=== PATIENT | female | born 1940 | race Caucasian/White ===

== ENCOUNTER 2018-01-05 23:51 | Emergency (ER) | payer MEDICARE ==
[~2018-01-05] VITALS: Ht 165.1 cm; Wt 79.0 kg
[~2018-01-05 23:51] MED LIST: ASPIRIN EC81 MG PO; CALCIUM600 M3 PO; CARVEDILOL6.25 MG PO; FLEXERIL PO; LIPITOR40 M1 PO; LISINOPRIL20 MG PO; NAPROSYN500 MG PO; PRILOSEC40 MG PO; ZYRTEC10 MG PO
[2018-01-06] MEDS ORDERED: CITRACAL +3 PO (00:18)
[2018-01-06] MEDS ORDERED: FIBERCON625 MG PO (00:19)
[2018-01-06] MEDS ORDERED: FLONASE AL50 MCG/ACT (00:20)
[2018-01-06] MEDS ORDERED: LOSARTAN POTASS50 MG PO (00:20)
[2018-01-06] MEDS ORDERED: FLORASTOR250 M1 PO (00:21)
[2018-01-06] MEDS ORDERED: VITAMIN B CO PO (00:22)
[2018-01-06 01:21] LABS: URINE BILIRUBIN - DIPSTICK NEGATIVE (NEGATIVE); URINE BLOOD DIPSTICK TRACE-INTACT (NEGATIVE); URINE COLOR YELLOW; URINE GLUCOSE - DIPSTICK NEGATIVE (NEGATIVE); URINE KETONE NEGATIVE (NEGATIVE); URINE NITRITE - DIPSTICK NEGATIVE (Negative); URINE PROTEIN - DIPSTICK NEGATIVE (NEG-TRACE); URINE UROBILINOGEN - DIPSTICK 0.2 E.U./dL (0.2)
[2018-01-06 01:23] LABS: URINE CLARITY CLOUDY; URINE LEUK ESTERASE MODERATE (NEGATIVE)
[2018-01-06 01:26] LABS: URINE RBC 0-2 RBC/hpf (0-5); URINE WBC 20-50 WBC/hpf (0-5)
[2018-01-06 01:27] LABS: URINE BACTERIA MODERATE hpf; URINE MUCUS FEW hpf (NONE-FEW); URINE SQUAMOUS EPITHELIAL CELL FEW EPI/hpf (0-FEW)
[2018-01-06] MEDS ORDERED: MEDDOSEPAK PO (01:32)
[2018-01-06] MEDS ORDERED: ULTRAM50 M1 PO (01:32)
[2018-01-06] MEDS ORDERED: FLEXERIL PO (01:32)
[2018-01-06 01:50] VITALS: BP 164/70
== END 2018-01-06 01:48 | disposition home or self-care (01) ==
LOC: ED 23:51
PROVIDERS: Emergency Medicine
DX: M47.816 Spondylosis without myelopathy or radiculopathy, lumbar region (principal); M54.30 Sciatica, unspecified side; B96.20 Unspecified Escherichia coli [E. coli] as the cause of diseases classified elsewhere

== ENCOUNTER 2018-04-26 10:53 | Inpatient (IN) | payer MEDICARE ==
[2018-04-26] VITALS (7 sets, daily range): BP systolic 120–185; BP diastolic 45–71
[~2018-04-26] VITALS: Ht 165.1 cm; Wt 81.0 kg
[~2018-04-26 10:53] MED LIST changes: +ADULT ASPIRIN E81 MG PO; -ASPIRIN EC81 MG PO; +CITRACAL +3 PO; +FIBERCON625 MG PO; +FLONASE AL50 MCG/ACT; +FLORASTOR250 M1 PO; +LOSARTAN POTASS50 MG PO; +MEDDOSEPAK PO; +ULTRAM50 M1 PO; +VITAMIN B CO PO
[2018-04-26 11:26] LABS: HEMATOCRIT 40.2 % (37.0-47.0); HEMOGLOBIN 13.5 g/dl (12.0-16.0); IMMATURE GRANULOCYTES 0.4 % (0.0-5.0); MEAN CELL VOLUME 80.1 fL CALC (80.0-100.0); MEAN CORPUSCULAR HGB 26.9 pG CALC (26.0-32.0); MEAN CORPUSCULAR HGB CONC 33.6 g/L CALC (32.0-36.0); NEUT# 4.3 thou/uL (2.00-7.15); RED BLOOD COUNT 5.02 mill/uL (4.20-5.60); RED CELL DISTRI WIDTH 14.1 % (11.5-15.5)
[2018-04-26 11:42] LABS: BUN 19 mg/dL (8-23); BUN/CREATININE RATIO 16 (12-20 (CALC)); CARBON DIOXIDE 31 mmol/l (22-30); CHLORIDE 88 mmol/l (95-108); CREATININE 1.2 mg/dL (0.5-1.0); GFR 43 ML/MIN (>=60 (CALC)); GFR FOR AFR.AMER. 52 ML/MIN (>=60 (CALC)); SODIUM 128 mmol/l (137-146)
[2018-04-26 11:44] LABS: ANION GAP 12 (6-22 (CALC)); POTASSIUM 3.1 mmol/l (3.5-5.1)
[2018-04-26] MEDS ORDERED: CHLORTHALID25 MG PO (11:50)
[2018-04-26 17:28] LABS: POTASSIUM 3.4 mmol/l (3.5-5.1)
[2018-04-27] VITALS (9 sets, daily range): BP systolic 120–171; BP diastolic 56–79
[2018-04-27 05:16] LABS: IMMATURE GRANULOCYTES 0.2 % (0.0-5.0); MEAN CELL VOLUME 80.1 fL CALC (80.0-100.0); MEAN CORPUSCULAR HGB 26.7 pG CALC (26.0-32.0); MEAN CORPUSCULAR HGB CONC 33.3 g/L CALC (32.0-36.0); NEUT# 3.1 thou/uL (2.00-7.15); RED BLOOD COUNT 4.87 mill/uL (4.20-5.60); RED CELL DISTRI WIDTH 14.3 % (11.5-15.5)
[2018-04-27 05:21] LABS: BILIRUBIN, TOTAL 0.8 mg/dL (0.0-1.4); CREATININE 1.4 mg/dL (0.5-1.0); MAGNESIUM 2.2 mg/dL (1.6-2.3); POTASSIUM 3.4 mmol/l (3.5-5.1); TOTAL PROTEIN 5.4 g/dL (6.3-8.2)
[2018-04-28 00:50] VITALS: BP 165/70
[2018-04-28 03:00] VITALS: BP 150/72
[2018-04-28 05:00] VITALS: BP 169/63
[2018-04-28 05:31] LABS: HEMATOCRIT 39.7 % (37.0-47.0); HEMOGLOBIN 13.2 g/dl (12.0-16.0); IMMATURE GRANULOCYTES 0.3 % (0.0-5.0); MEAN CORPUSCULAR HGB 26.9 pG CALC (26.0-32.0); MEAN CORPUSCULAR HGB CONC 33.2 g/L CALC (32.0-36.0); NEUT# 3.33 thou/uL (2.00-7.15); RED BLOOD COUNT 4.9 mill/uL (4.20-5.60); RED CELL DISTRI WIDTH 14.6 % (11.5-15.5)
[2018-04-28 05:52] LABS: ALBUMIN 3.2 g/dL (3.2-5.0); BILIRUBIN, TOTAL 0.6 mg/dL (0.0-1.4); CREATININE 1.2 mg/dL (0.5-1.0); MAGNESIUM 1.9 mg/dL (1.6-2.3); POTASSIUM 3.6 mmol/l (3.5-5.1); TOTAL PROTEIN 5.4 g/dL (6.3-8.2)
[2018-04-28 05:53] LABS: CHOLESTEROL HDL RATIO 2.3 (<4.4 (CALC))
[2018-04-28 10:17] VITALS: BP 144/57
[2018-04-28] MEDS ORDERED: COZAAR25 MG PO (11:11)
[2018-04-28] MEDS ORDERED: AMLODIPINE BESYL5 MG PO (11:12)
[2018-04-28] MEDS ORDERED: VITAMIN D2000 UNI2 PO (11:20)
[2018-04-28 11:25] LABS: URINE BILIRUBIN - DIPSTICK NEGATIVE (NEGATIVE); URINE BLOOD DIPSTICK NEGATIVE (NEGATIVE); URINE CLARITY CLEAR; URINE COLOR YELLOW; URINE GLUCOSE - DIPSTICK NEGATIVE (NEGATIVE); URINE KETONE NEGATIVE (NEGATIVE); URINE LEUK ESTERASE NEGATIVE (Negative); URINE NITRITE - DIPSTICK NEGATIVE (Negative); URINE PROTEIN - DIPSTICK NEGATIVE (NEG-TRACE); URINE UROBILINOGEN - DIPSTICK 0.2 E.U./dL (0.2)
== END 2018-04-28 12:38 | disposition home or self-care (01) | DRG 641 ==
LOC: ED 10:53 → ED-I 12:00 → ED 12:32 → ICU 12:33
PROVIDERS: Family Medicine; ADMIT Internal Medicine Nephrology; ATTEND Internal Medicine Nephrology
DX: E87.1 Hypo-osmolality and hyponatremia (principal); N17.9 Acute kidney failure, unspecified; N39.0 Urinary tract infection, site not specified; E87.6 Hypokalemia; T50.2X5A Adverse effect of carbonic-anhydrase inhibitors, benzothiadiazides and other diuretics, initial encounter; I12.9 Hypertensive chronic kidney disease with stage 1 through stage 4 chronic kidney disease, or unspecified chronic kidney disease; N18.3 Chronic kidney disease, stage 3 (moderate); J44.9 Chronic obstructive pulmonary disease, unspecified; E78.5 Hyperlipidemia, unspecified; I25.10 Atherosclerotic heart disease of native coronary artery without angina pectoris; K21.9 Gastro-esophageal reflux disease without esophagitis; G89.29 Other chronic pain; M54.9 Dorsalgia, unspecified; R00.1 Bradycardia, unspecified; E55.9 Vitamin D deficiency, unspecified; B96.20 Unspecified Escherichia coli [E. coli] as the cause of diseases classified elsewhere; Z87.891 Personal history of nicotine dependence; Z95.828 Presence of other vascular implants and grafts
CPT/HCPCS: J1650; J3475

== ENCOUNTER → 2018-08-10 | Outpatient (REF) | payer MEDICARE ==
[~2018-08-10] MED LIST changes: +AMLODIPINE BESYL5 MG PO; +CHLORTHALID25 MG PO; +COZAAR25 MG PO; +VITAMIN D2000 UNI2 PO
[2018-08-10 12:28] LABS: HEMATOCRIT 39.4 % (37.0-47.0); IMMATURE GRANULOCYTES 0.1 % (0.0-5.0); MEAN CELL VOLUME 85.3 fL CALC (80.0-100.0); MEAN CORPUSCULAR HGB 28.1 pG CALC (26.0-32.0); RED BLOOD COUNT 4.62 mill/uL (4.20-5.60); RED CELL DISTRI WIDTH 15.5 % (11.5-15.5); URINE BILIRUBIN - DIPSTICK NEGATIVE (NEGATIVE); URINE BLOOD DIPSTICK NEGATIVE (NEGATIVE); URINE CLARITY CLEAR; URINE COLOR YELLOW; URINE GLUCOSE - DIPSTICK NEGATIVE (NEGATIVE); URINE KETONE NEGATIVE (NEGATIVE); URINE LEUK ESTERASE NEGATIVE (Negative); URINE NITRITE - DIPSTICK NEGATIVE (Negative); URINE PH 5.5 (4.5-8.0); URINE PROTEIN - DIPSTICK NEGATIVE (NEG-TRACE); URINE SPECIFIC GRAVITY <=1.005; URINE UROBILINOGEN - DIPSTICK 0.2 E.U./dL (0.2)
[2018-08-10 12:44] LABS: ALBUMIN 3.8 g/dL (3.2-5.0); CREATININE 1.2 mg/dL (0.5-1.0); POTASSIUM 3.7 mmol/l (3.5-5.1)
== END | disposition home or self-care (01) ==
LOC: LAB 11:55
PROVIDERS: ATTEND Internal Medicine Nephrology
DX: N18.3 Chronic kidney disease, stage 3 (moderate) (principal)

== ENCOUNTER 2022-06-17 22:01 | Emergency (ER) | payer MEDICARE ==
[~2022-06-17] VITALS: Ht 165.1 cm; Wt 81.0 kg
[2022-06-17 22:14] VITALS: BP 135/58
[2022-06-17 22:56] LABS: BASO% 0.3 % (0-3); EOS% 1.4 % (0-8); HEMATOCRIT 38.7 % (37.0-47.0); HEMOGLOBIN 13.3 g/dl (12.0-16.0); IMMATURE GRANULOCYTES 0.1 % (0.0-5.0); LYMPH% 16.3 % (15-41); MEAN CORPUSCULAR HGB 30.9 pG CALC (26.0-32.0); MEAN CORPUSCULAR HGB CONC 34.4 g/dL CAL (32.0-36.0); MONO% 9.7 % (2-13); NEUT# 6.63 thou/uL (2.00-7.15); NEUT% 72.2 % (42-76); RED BLOOD COUNT 4.3 mill/uL (4.20-5.60); RED CELL DISTRI WIDTH 13.7 % (11.5-15.5); URINE BILIRUBIN - DIPSTICK NEGATIVE (NEGATIVE); URINE BLOOD DIPSTICK NEGATIVE (NEGATIVE); URINE COLOR YELLOW; URINE GLUCOSE - DIPSTICK NEGATIVE (NEGATIVE); URINE KETONE NEGATIVE (NEGATIVE); URINE LEUK ESTERASE NEGATIVE (NEGATIVE); URINE NITRITE - DIPSTICK NEGATIVE (Negative); URINE PROTEIN - DIPSTICK NEGATIVE (NEG-TRACE); URINE SPECIFIC GRAVITY 1.025
[2022-06-17 23:08] LABS: ALBUMIN 3.7 g/dL (3.2-5.0); BILIRUBIN, TOTAL 0.8 mg/dL (0.0-1.4); CREATININE 1.1 mg/dL (0.5-1.0); POTASSIUM 4.1 mmol/l (3.5-5.1)
[2022-06-18] MEDS ORDERED: CITRATE OF MEGNESIA PO (00:26)
[2022-06-18] MEDS ORDERED: MIRALAX17 GM PO (00:26)
[2022-06-18 00:41] VITALS: BP 135/58
== END 2022-06-18 01:05 | disposition home or self-care (01) ==
LOC: ED 22:01
PROVIDERS: Family Medicine
DX: K59.00 Constipation, unspecified (principal); I10 Essential (primary) hypertension; F17.200 Nicotine dependence, unspecified, uncomplicated; Z95.820 Peripheral vascular angioplasty status with implants and grafts

== ENCOUNTER 2022-07-15 23:33 | Emergency (ER) | payer MEDICARE ==
[~2022-07-15] VITALS: Ht 165.1 cm; Wt 84.1 kg
[~2022-07-15 23:33] MED LIST changes: +CITRATE OF MEGNESIA PO; +MIRALAX17 GM PO
[2022-07-16] MEDS ORDERED: NORVASC2.5 M1 PO (00:06)
[2022-07-16] MEDS ORDERED: ATORVASTATIN CA40 MG PO (00:07)
[2022-07-16] MEDS ORDERED: CARVEDILOL25 MG PO (00:07)
[2022-07-16] MEDS ORDERED: D31000 UNIT PO (00:09)
[2022-07-16] MEDS ORDERED: MONTELUKAST SOD10 MG PO (00:11)
[2022-07-16] MEDS ORDERED: PROTONIX20 M1 PO (00:13)
[2022-07-16] MEDS ORDERED: MICARDIS80 MG PO (00:14)
[2022-07-16] MEDS ORDERED: ELIQUIS5 MG PO (00:16)
[2022-07-16 00:33] LABS: BASO% 0.5 % (0-3); EOS% 3.6 % (0-8); HEMATOCRIT 39.6 % (37.0-47.0); HEMOGLOBIN 13.3 g/dl (12.0-16.0); IMMATURE GRANULOCYTES 0.2 % (0.0-5.0); LYMPH% 35.5 % (15-41); MEAN CELL VOLUME 89.4 fL CALC (80.0-100.0); MEAN CORPUSCULAR HGB CONC 33.6 g/dL CAL (32.0-36.0); MONO% 8.6 % (2-13); NEUT# 2.86 thou/uL (2.00-7.15); NEUT% 51.6 % (42-76); RED BLOOD COUNT 4.43 mill/uL (4.20-5.60); RED CELL DISTRI WIDTH 13.4 % (11.5-15.5)
[2022-07-16 00:45] LABS: ALBUMIN 3.8 g/dL (3.2-5.0); BILIRUBIN, TOTAL 0.7 mg/dL (0.02-1.3); CREATININE 1.1 mg/dL (0.5-1.0); POTASSIUM 4.1 mmol/l (3.5-5.1); TOTAL PROTEIN 6.2 g/dL (6.3-8.2)
[2022-07-16 04:28] VITALS: BP 131/62
== END 2022-07-16 04:29 | disposition home or self-care (01) ==
LOC: ED 23:33
PROVIDERS: Emergency Medicine
DX: K59.00 Constipation, unspecified (principal); I10 Essential (primary) hypertension; F17.200 Nicotine dependence, unspecified, uncomplicated; Z95.820 Peripheral vascular angioplasty status with implants and grafts

== ENCOUNTER 2022-09-01 17:40 | Emergency (ER) | payer MEDICARE ==
[~2022-09-01] VITALS: Ht 165.1 cm; Wt 83.9 kg
[~2022-09-01 17:40] MED LIST changes: +ATORVASTATIN CA40 MG PO; +CARVEDILOL25 MG PO; +D31000 UNIT PO; +ELIQUIS5 MG PO; +MICARDIS80 MG PO; +MONTELUKAST SOD10 MG PO; +NORVASC2.5 M1 PO; +PROTONIX20 M1 PO
[2022-09-01 17:48] VITALS: BP 169/66
[2022-09-01 18:13] LABS: BASO% 0.6 % (0-3); EOS% 3.9 % (0-8); HEMATOCRIT 40.9 % (37.0-47.0); HEMOGLOBIN 13.3 g/dl (12.0-16.0); IMMATURE GRANULOCYTES 0.1 % (0.0-5.0); LYMPH% 32.5 % (15-41); MEAN CELL VOLUME 89.9 fL CALC (80.0-100.0); MEAN CORPUSCULAR HGB 29.2 pG CALC (26.0-32.0); MEAN CORPUSCULAR HGB CONC 32.5 g/dL CAL (32.0-36.0); MONO% 9.6 % (2-13); NEUT# 3.73 thou/uL (2.00-7.15); NEUT% 53.3 % (42-76); RED BLOOD COUNT 4.55 mill/uL (4.20-5.60); RED CELL DISTRI WIDTH 13.7 % (11.5-15.5)
[2022-09-01 18:31] LABS: ALBUMIN 3.9 g/dL (3.2-5.0); BILIRUBIN, TOTAL 0.8 mg/dL (0.02-1.3); CREATININE 1.2 mg/dL (0.5-1.0); POTASSIUM 4.4 mmol/l (3.5-5.1); TOTAL PROTEIN 6.2 g/dL (6.3-8.2)
[2022-09-01 18:35] VITALS: BP 151/57
[2022-09-01 18:45] VITALS: BP 157/74
[2022-09-01 19:49] LABS: URINE BILIRUBIN - DIPSTICK NEGATIVE (NEGATIVE); URINE BLOOD DIPSTICK NEGATIVE (NEGATIVE); URINE COLOR YELLOW; URINE GLUCOSE - DIPSTICK NEGATIVE (NEGATIVE); URINE KETONE NEGATIVE (NEGATIVE); URINE LEUK ESTERASE TRACE (NEGATIVE); URINE PROTEIN - DIPSTICK NEGATIVE (NEG-TRACE); URINE SPECIFIC GRAVITY 1.025
[2022-09-01 19:53] LABS: URINE NITRITE - DIPSTICK NEGATIVE (Negative)
[2022-09-01] MEDS ORDERED: ZOFRAN4 MG/TAB PO ×2 (20:18→20:39)
[2022-09-01] MEDS ORDERED: MIRALAX17 GM PO ×2 (20:18→20:39)
[2022-09-01] MEDS ORDERED: DICYCLOMINE10 MG PO ×2 (20:18→20:39)
[2022-09-01 20:40] VITALS: BP 157/74
== END 2022-09-01 21:23 | disposition home or self-care (01) ==
LOC: ED 17:40
PROVIDERS: Family Medicine
DX: K59.00 Constipation, unspecified (principal); I10 Essential (primary) hypertension; Z95.820 Peripheral vascular angioplasty status with implants and grafts; Z79.01 Long term (current) use of anticoagulants

== ENCOUNTER 2024-06-20 13:13 | Inpatient (IN) | payer MEDICARE ==
[2024-06-20] VITALS (36 sets, daily range): BP systolic 107–140; BP diastolic 42–65
[~2024-06-20] VITALS: Ht 165.1 cm; Wt 79.1 kg
[~2024-06-20 13:13] MED LIST changes: +ALLERGY RE50 MCG/ACT; +AMLODIPINE BES2.5 MG PO; +B COMPLEX FORMU1 TAB PO; +BACTRIM DS1 TAB PO; +DICYCLOMINE10 MG PO; +PROTONIX40 M2 PO; +ZOFRAN4 MG/TAB PO
[2024-06-20] MEDS ORDERED: Meropenem 1 GM in SODIUM CHLORIDE 0.9% 100 ML IV ONE (14:20)
--- NOTE | 2024-06-20 14:27 | NUR ---
Unable to start IV due to patient being a difficult stick.
[2024-06-20 14:59] LABS: BASO% 0.4 % (0-3); EOS% 3.4 % (0-8); HEMATOCRIT 35.5 % (37.0-47.0); HEMOGLOBIN 11.4 g/dl (12.0-16.0); IMMATURE GRANULOCYTES 0.4 % (0.0-5.0); LYMPH% 29.8 % (15-41); MEAN CELL VOLUME 87.7 fL CALC (80.0-100.0); MEAN CORPUSCULAR HGB 28.1 pG CALC (26.0-32.0); MEAN CORPUSCULAR HGB CONC 32.1 g/dL CAL (32.0-36.0); MONO% 11.2 % (2-13); NEUT# 4.02 thou/uL (2.00-7.15); NEUT% 54.8 % (42-76); RED BLOOD COUNT 4.05 mill/uL (4.20-5.60); RED CELL DISTRI WIDTH 20.5 % (11.5-15.5)
[2024-06-20 15:11] LABS: ALBUMIN 3.5 g/dL (3.2-5.0); CREATININE 1.4 mg/dL (0.5-1.0); POTASSIUM 4.4 mmol/l (3.5-5.1); TOTAL PROTEIN 5.8 g/dL (6.3-8.2)
[2024-06-20 15:16] LABS: BILIRUBIN, TOTAL 0.9 mg/dL (0.02-1.3)
[2024-06-20] MEDS ORDERED: MAGNESIUM HYDROXIDE 30 ML UDC PO PRN (16:10)
[2024-06-20] MEDS ORDERED: ACETAMINOPHEN 325 MG/TAB PO PRN (16:10)
[2024-06-20] MEDS ORDERED: cefTRIAXone SODIUM 2 GM in SODIUM CHLORIDE 0.9% 100 ML IV SCH (16:10)
[2024-06-20] MEDS ORDERED: SODIUM CHLORIDE 0.9% 1,000 ML IV PRN (16:10)
[2024-06-20] MEDS ORDERED: HYDROcodone 5 MG/Acetaminophen 325 MG/COMBO PO ONE (17:05)
--- NOTE | 2024-06-20 18:00 | NUR ---
Report called to [facility], ICU.
--- NOTE | 2024-06-20 19:00 | NUR ---
PT ARRIVED TO ICU BED 7 VIA W/C @ APPROX 1843. PT AMBULATED TO BED. PT IS A + O x4, NO COMPLAINTS AT THIS TIME. ASSESSMENT COMPLETED. EDUCTAED PT ON POC, DAUGHTER @ BEDSIDE. V/S STABLE, CALL LIGHT IN REACH
[2024-06-20] MEDS ORDERED: ATORVASTATIN CALCIUM 40 MG/TAB PO SCH (21:00)
[2024-06-20] MEDS ORDERED: CARVEDILOL 25 MG/TAB PO SCH (21:00)
[2024-06-20] MEDS ORDERED: APIXABAN BASE 5 MG TAB PO SCH (21:00)
[2024-06-20] MEDS ORDERED: Meropenem 1 GM in SODIUM CHLORIDE 0.9% 100 ML IV SCH (22:00)
[2024-06-21] VITALS (80 sets, daily range): BP systolic 66–165; BP diastolic 29–116
--- NOTE | 2024-06-21 | NUR ---
PT RESTING COMFORTABLY, NO CHNAGES NOTED. V/S STABLE. CALL LIGHT IN REACH
--- NOTE | 2024-06-21 04:00 | NUR ---
PT ENCOURAGED TO INTAKE WATER, EDUCATED ON NEED. PT WAS ASSISTED TO BSC BY THEATER TEACHER, VOID ONLY. PT BACK IN BED, V/S STABLE, CALL LIGHT IN REACH
[2024-06-21 06:02] LABS: BASO% 0.4 % (0-3); EOS% 4.7 % (0-8); HEMATOCRIT 35.5 % (37.0-47.0); HEMOGLOBIN 11.6 g/dl (12.0-16.0); IMMATURE GRANULOCYTES 0.2 % (0.0-5.0); LYMPH% 29.8 % (15-41); MEAN CELL VOLUME 89.4 fL CALC (80.0-100.0); MEAN CORPUSCULAR HGB 29.2 pG CALC (26.0-32.0); MEAN CORPUSCULAR HGB CONC 32.7 g/dL CAL (32.0-36.0); MONO% 8.6 % (2-13); NEUT% 56.3 % (42-76); RED BLOOD COUNT 3.97 mill/uL (4.20-5.60); RED CELL DISTRI WIDTH 20.6 % (11.5-15.5)
[2024-06-21 06:27] LABS: BILIRUBIN, TOTAL 0.8 mg/dL (0.02-1.3); CREATININE 1.5 mg/dL (0.5-1.0); MAGNESIUM 2.2 mg/dL (1.6-2.3); POTASSIUM 4.3 mmol/l (3.5-5.1); TOTAL PROTEIN 5.2 g/dL (6.3-8.2)
--- NOTE | 2024-06-21 08:00 | NUR ---
REPORT RECEIVED FROM NIGHT NURSE. PATIENT AXO X3. S1S2 NOTED, HR REGULAR. LUNG SOUNDS CLEAR, NO COUGH OR SOB NOTED. ABDOMEN SOFT, NON DISTENDED, NON TENDER, WITH ACTIVE BOWEL SOUNDS. PULSES STRONG IN ALL EXTREMITIES. SKIN WDI. CALL LIGHT IN REACH.
[2024-06-21] MEDS ORDERED: MONTELUKAST SODIUM 10 MG/TAB PO SCH (09:00)
[2024-06-21] MEDS ORDERED: amLODIPine BESYLATE 5 MG/TAB PO SCH (09:00)
[2024-06-21] MEDS ORDERED: CLARIFY DOSE PO SCH (09:00)
[2024-06-21] MEDS ORDERED: PANTOPRAZOLE SODIUM Sesquihydr 40 MG/TAB PO SCH (09:00)
--- NOTE | 2024-06-21 12:00 | NUR ---
PATIENT SITTING UP IN BED RESTING. ALL NEEDS MET. CALL LIGHT IN REACH.
[2024-06-21] MEDS ORDERED: cefTRIAXone SODIUM 2 GM in SODIUM CHLORIDE 0.9% 100 ML IV SCH (14:00)
--- NOTE | 2024-06-21 16:00 | NUR ---
PATIENT SITTING UP IN BED. DAUGHTER AT BEDSIDE. DAUGHTER UPDATED ON PATIENT CONDITION. CALL LIGHT IN REACH.
--- NOTE | 2024-06-21 20:00 | NUR ---
ASSESSMENT COMPLETED. PT NOTABLY ANXIOUS, STATES SHE IS SOB. PLACED ON 2 L O2 NC, SAT IS 93%. PT REQUSTING CPAP FROM HOME. EDUCATED THAT PT DAUGHTER COULD BRING IT IN FOR HER. PT INSTRUCTED ON BREATHING TECHNIQUES. PT IS ALERT TO PPT, BUT SHOWING SIGNS OF MILD CONFUSIION. V/S STABLE. BED ALARM ACTIVATED. CALL LIGHT IS IN REACH .
[2024-06-21] MEDS ORDERED: APIXABAN BASE 2.5 MG/TAB TAB PO SCH (21:00)
[2024-06-22] VITALS (28 sets, daily range): BP systolic 67–148; BP diastolic 38–104
--- NOTE | 2024-06-22 00:30 | NUR ---
NO CHANGES. PT ASSISTED TO BSC, VOID ONLY. PT MILDLY ANXIOUS, BREATHING TECHNIQUE USED FOR COMFORT MEASURES. V/S STABLE. CALL LIGHT IN REACH
--- NOTE | 2024-06-22 05:35 | NUR ---
PT RESTING COMFORTABLY. NO CHANGE IN PT STATUS. V/S STABLE. CALL LIGHT IN REACH
[2024-06-22 06:06] LABS: HEMATOCRIT 39.1 % (37.0-47.0); HEMOGLOBIN 13.4 g/dl (12.0-16.0); MEAN CELL VOLUME 86.5 fL CALC (80.0-100.0); MEAN CORPUSCULAR HGB 29.6 pG CALC (26.0-32.0); MEAN CORPUSCULAR HGB CONC 34.3 g/dL CAL (32.0-36.0); RED BLOOD COUNT 4.52 mill/uL (4.20-5.60)
[2024-06-22 06:07] LABS: ALBUMIN 3.5 g/dL (3.2-5.0); CREATININE 1.2 mg/dL (0.5-1.0); POTASSIUM 4.2 mmol/l (3.5-5.1)
[2024-06-22 06:17] LABS: BILIRUBIN, TOTAL 1.4 mg/dL (0.02-1.3)
[2024-06-22] MEDS ORDERED: APIXABAN BASE 5 MG TAB PO SCH (09:00)
--- NOTE | 2024-06-22 12:00 | NUR ---
PATIENT SITTING UP IN BED. DAUGHTER AT BEDSIDE. ALL NEEDS MET. CALL LIGHT IN REACH.
--- NOTE | 2024-06-22 16:00 | NUR ---
PATIENT LAYING DOWN IN BED ASLEEP. ALL NEEDS MET. CALL LIGHT IN REACH.
--- NOTE | 2024-06-22 20:35 | NUR ---
UPON ENTERING PT ROOM FOR ASSESSMENT, PT WAS STANDING UP BY BED TRYING TO CLEAN BM FROM SELF, BSC, AND FLOOR. PT CLEANED UP AND PLACED BACK IN BED. PT EDUCATED TO CALL PRIOR TO GETTING OUT OF BED. ASSESSMENT WAS COMPLETED, PT IS ALERT TO SELF, REORIENTED PT TO PLACE AND TIME. PT DENIES ANY PAIN, HAS NO COMPLAINTS. V/S STABLE. BED ALARM ACTIVATED. CALL LIGHT IN REACH
[2024-06-23] VITALS (11 sets, daily range): BP systolic 82–143; BP diastolic 49–107
--- NOTE | 2024-06-23 00:15 | NUR ---
PT WAS ATTEMPTING TO GET OUT OF BED. PT ASSISTED TO BSC. PT ASKED WHERE SHE WAS, REORIENTED TO PLACE. PT ONLY ALERT TO SELF. PT IS BACK IN BED. BED ALARM IS ACTIVATED. CALL LIGHT IN REACH
--- NOTE | 2024-06-23 04:25 | NUR ---
PT IS RESTFUL BUT ONLY ALERT TO SELF. REORIENTATED PT TO HOSPITAL ROOM, EDUCATED PT ON DX AND WHY SHE WAS IN HOSPITAL. V/S STABLE. BED ALARM IS ACTIVATED. CALL LIGHT IN REACH
[2024-06-23 06:02] LABS: HEMATOCRIT 37.5 % (37.0-47.0); HEMOGLOBIN 12.5 g/dl (12.0-16.0); MEAN CELL VOLUME 88.2 fL CALC (80.0-100.0); MEAN CORPUSCULAR HGB 29.4 pG CALC (26.0-32.0); MEAN CORPUSCULAR HGB CONC 33.3 g/dL CAL (32.0-36.0); RED BLOOD COUNT 4.25 mill/uL (4.20-5.60)
[2024-06-23 06:39] LABS: ALBUMIN 3.2 g/dL (3.2-5.0); BILIRUBIN, TOTAL 1.5 mg/dL (0.02-1.3); MAGNESIUM 2.1 mg/dL (1.6-2.3); POTASSIUM 4.2 mmol/l (3.5-5.1); TOTAL PROTEIN 5.5 g/dL (6.3-8.2)
[2024-06-23] MEDS ORDERED: LEVOFLOXACIN750 MG PO (08:08)
--- NOTE | 2024-06-23 09:35 | NUR ---
Discharge instructions reviewed with patient's daughter over the phone per daughter's request. Patient's daughter verbalized understanding.
--- NOTE | 2024-06-23 10:00 | NUR ---
Patient transported via wheelchair to [facility] for DC home with daughter.
== END 2024-06-23 09:45 | disposition home or self-care (01) | DRG 872 ==
LOC: ED 13:13 → ED-I 15:40 → ED 16:04 → ICU 16:05
PROVIDERS: Nurse Practitioner; Nurse Practitioner Family; ADMIT Internal Medicine; ATTEND Internal Medicine
DX: R78.81 Bacteremia (principal); N39.0 Urinary tract infection, site not specified; B96.1 Klebsiella pneumoniae [K. pneumoniae] as the cause of diseases classified elsewhere; B96.20 Unspecified Escherichia coli [E. coli] as the cause of diseases classified elsewhere; I12.9 Hypertensive chronic kidney disease with stage 1 through stage 4 chronic kidney disease, or unspecified chronic kidney disease; N18.9 Chronic kidney disease, unspecified; J44.9 Chronic obstructive pulmonary disease, unspecified; I25.10 Atherosclerotic heart disease of native coronary artery without angina pectoris; I48.91 Unspecified atrial fibrillation; I70.1 Atherosclerosis of renal artery; E78.5 Hyperlipidemia, unspecified; Z95.5 Presence of coronary angioplasty implant and graft; Z87.440 Personal history of urinary (tract) infections; Z95.820 Peripheral vascular angioplasty status with implants and grafts; Z87.442 Personal history of urinary calculi; Z87.19 Personal history of other diseases of the digestive system; Z87.891 Personal history of nicotine dependence; Z79.01 Long term (current) use of anticoagulants
CPT/HCPCS: J0696; Q9967